=== PATIENT | male | born 1950 | race Caucasian/White ===

== ENCOUNTER 2019-07-23 12:54 | Emergency (ER) | payer MEDICARE, SELFPAY ==
[2019-07-23 13:04] VITALS: BP 109/85; PULSE 80; RESP 16; TEMP 36.3; O2SAT 99
--- NOTE | 2019-07-23 13:12 | ED.UPPEXIN ---
HPI - Extremity Injury (Upper) General Chief Complaint: Upper Respiratory Infection Stated Complaint: Sore throat Time Seen by Provider: 07/23/19 13:13 Source: patient Mode of arrival: ambulatory History of Present Illness HPI narrative: patient presents with sore throat no cough no shortness of breath no ear pain no drooling and no problems swallowing. Related Data Home Medications Medication Instructions Recorded Confirmed amlodipine 10 mg PO DAILY 07/23/19 07/23/19 aspirin 81 mg PO DAILY 07/23/19 07/23/19 atorvastatin 20 mg PO DAILY 07/23/19 07/23/19 finasteride 5 mg PO DAILY 07/23/19 07/23/19 metoprolol tartrate 25 mg PO DAILY 07/23/19 07/23/19 nitroglycerin 0.4 mg SUBLINGUAL Q5M PRN 07/23/19 07/23/19 omeprazole 20 mg PO DAILY 07/23/19 07/23/19 Allergies Allergy/AdvReac Type Severity Reaction Status Date / Time ampicillin Allergy Unknown Unknown Unverified 07/23/19 13:16 Penicillins Allergy Unknown Verified 07/23/19 13:16 Review of Systems Review of Systems: Narrative: CONSTITUTIONAL: Denies fever, chills, or sweats. EYES: Denies visual changes, redness, or discharge. ENT: Denies rhinorrhea, congestion, or otalgia. Reports sore throat CARDIOVASCULAR: Denies chest pain, palpitations, or edema. RESPIRATORY: Denies cough or dyspnea. GASTROINTESTINAL: Denies abdominal pain, nausea, vomiting, or diarrhea. GENITOURINARY: Denies dysuria or hematuria. SKIN: Denies rash or itching. MUSCULOSKELETAL: Denies back pain, joint pain, or myalgia. NEUROLOGIC: Denies headache, numbness, or weakness. PSYCHIATRIC: Denies anxiety or depression. PMFSH Comments At time of signature, agree with nursing past medical, surgical, social and family history. There is no relevant family history pertinent to the presenting complaint Exam Narrative: Exam Narrative: GENERAL: Well-appearing, well-nourished, and in no acute distress. HEAD: Normocephalic, atraumatic. EYES: PERRLA and EOMI. ENT: Nares clear, no rhinorrhea or epistaxis. Mucous membranes moist. moderate pharyngeal erythema with exudate. mild poat nasal draiange NECK: Supple. CHEST: Clear to auscultation. No respiratory distress. HEART: Regular rate and rhythm. No murmur heard. Normal peripheral pulses. ABDOMEN: Soft, nontender, nondistended, normal active bowel sounds. EXTREMITIES: Normal range of motion. No edema. SKIN: Warm, dry, no rash. NEURO: No focal deficits. Alert and oriented x3. Kite Coma Scale Eye Opening: Spontaneous 4 Rudi Coma Scale Motor: Obeys Commands 6 Rudi Coma Scale Verbal: Oriented 5 Kite Coma Scale Total 15 Course Vital Signs Vital signs: Vital Signs Temperature 36.3 C L 07/23/19 13:04 Pulse Rate 80 07/23/19 13:04 Respiratory Rate 16 07/23/19 13:04 Blood Pressure 109/85 07/23/19 13:04 Pulse Oximetry 99 07/23/19 13:04 Temperature 36.3 C L 07/23/19 13:04 Pulse Rate 80 07/23/19 13:04 Respiratory Rate 16 07/23/19 13:04 Blood Pressure 109/85 07/23/19 13:04 Pulse Oximetry 99 07/23/19 13:04 MDM - Extremity Injury (Upper) Differential Diagnosis Differential diagnosis: Likely other (Upper respiratory infection, pharyngitis, strep pharyngitis) Lab Data Labs: Strep Screen Presumptive Negative *(Reference Range: Negative)* Critical Care Time Critical Care Time Critical Care Time: No Discharge Plan Discharge Clinical Impression: Exudative tonsillitis, Viral infection Upper respiratory infection Qualifiers: URI type: unspecified viral URI Qualified Code(s): J06.9 - Acute upper respiratory infection, unspecified Pharyngitis Qualifiers: Pharyngitis/tonsillitis etiology: other specified organisms Qualified Code(s): J02.8 - Acute pharyngitis due to other specified organisms Patient Disposition: Home, Self-Care Condition: Stable Instructions: Antibiotic Form Additional Instructions: Increase fluids especially juices and water [id number] cough an
== END 2019-07-23 13:30 | disposition home or self-care (01) ==
PROVIDERS: Emergency Provider Nurse Practitioner Family
DX: J02.8 Acute pharyngitis due to other specified organisms (principal); B34.9 Viral infection, unspecified; J06.9 Acute upper respiratory infection, unspecified; E78.00 Pure hypercholesterolemia, unspecified; I10 Essential (primary) hypertension
CPT/HCPCS: 87081; 87880; 99213; G0463

== ENCOUNTER 2020-01-04 10:12 | Emergency (ER) | payer MEDICARE, SELFPAY ==
[2020-01-04 10:17] VITALS: BP 146/80; PULSE 68; RESP 16; TEMP 36.2; O2SAT 100
--- NOTE | 2020-01-04 10:19 | ED.SKABFB ---
HPI - Skin/Abscess/Foreign Bdy General Chief complaint: Skin/Abscess/Foreign Body Stated complaint: rash on arms Time Seen by Provider: 01/04/20 10:19 Source: patient and RN notes reviewed History of Present Illness HPI narrative: Patient is a 69-year-old male who presents the urgent care with complaints of poison radha on bilateral lower arms. Patient states he contacted himself with it on Sunday and has been using calamine. Patient denies any other use of [id number] medication such as Benadryl. Patient states that he gets poison radha very regularly. No other complications or no other areas of spreading. No acute distress noted. Patient read the plan of care. Related Data Home Medications Medication Instructions Recorded Confirmed aspirin 81 mg PO DAILY 07/23/19 01/04/20 atorvastatin 20 mg PO DAILY 07/23/19 01/04/20 finasteride 5 mg PO DAILY 07/23/19 01/04/20 nitroglycerin 0.4 mg SUBLINGUAL Q5M PRN 07/23/19 01/04/20 omeprazole 20 mg PO DAILY 07/23/19 01/04/20 losartan 25 mg PO DAILY 01/04/20 01/04/20 metoprolol succinate 25 mg PO DAILY 01/04/20 01/04/20 Allergies Allergy/AdvReac Type Severity Reaction Status Date / Time ampicillin Allergy Unknown Unknown Unverified 01/04/20 10:16 Penicillins Allergy Unknown Verified 01/04/20 10:16 Review of Systems Review of Systems: Narrative: CONSTITUTIONAL: Denies fever, chills, or sweats. EYES: Denies visual changes, redness, or discharge. ENT: Denies rhinorrhea, congestion, sore throat, or otalgia. CARDIOVASCULAR: Denies chest pain, palpitations, or edema. RESPIRATORY: Denies cough or dyspnea. GASTROINTESTINAL: Denies abdominal pain, nausea, vomiting, or diarrhea. GENITOURINARY: Denies dysuria or hematuria. SKIN: Reports of itchy poison radha to bilateral lower arms MUSCULOSKELETAL: Denies back pain, joint pain, or myalgia. NEUROLOGIC: Denies headache, numbness, or weakness. All other systems reviewed are negative, except as documented in HPI. PMFSH Comments At the time of my signature, I reviewed and agree with the nursing past medical, surgical, social, and family history. There is no relevant family history pertinent to the patient complaint. Exam Narrative: Exam Narrative: GENERAL: This is a well-nourished, well-developed patient, in no apparent distress. HEAD: normocephalic, atraumatic. EYES: PERRL. Sclera clear/white. Vision is grossly intact. EARS: External ears normal NOSE: External nose normal with no obvious nasal discharge, nares without redness, no rhinorrhea. THROAT: Mucous membranes moist NECK: Neck supple SKIN: Notable dried ruse dermatitis noted bilateral lower arms NEURO: awake, alert, and oriented to person, place and time. There were no obvious focal neurologic abnormalities. EXTREMITIES: No clubbing, cyanosis, or edema. Course Vital Signs Vital signs: Vital Signs Temperature 97.1 F L 01/04/20 10:17 Pulse Rate 68 01/04/20 10:17 Respiratory Rate 16 01/04/20 10:17 Blood Pressure 146/80 H 01/04/20 10:17 Pulse Oximetry 100 01/04/20 10:17 Temperature 97.1 F L 01/04/20 10:17 Pulse Rate 68 01/04/20 10:17 Respiratory Rate 16 01/04/20 10:17 Blood Pressure 146/80 H 01/04/20 10:17 Pulse Oximetry 100 01/04/20 10:17 Reviewed?patient is informed that they may have pre-hypertension or hypertension based on a blood pressure reading in the department. I recommend the patient call the primary care provider listed on their discharge instructions or a physician of their choice this week to arrange follow-up for further evaluation of possible pre-hypertension or hypertension. MDM - Skin/Abscess/Foreign Bdy MDM Narrative Medical decision making narrative: Advised the patient to use Benadryl as needed as well as prescription cream to affected areas. Avoid the use of prescription cream to the groin, underarms and face. Use TecNu scrub [id number] daily while showering. If you develop any increase in the spread of the rash to areas suc
== END 2020-01-04 10:39 | disposition home or self-care (01) ==
PROVIDERS: Emergency Provider Nurse Practitioner Family; PCP Internal Medicine Infectious Disease
DX: L23.7 Allergic contact dermatitis due to plants, except food (principal); E78.00 Pure hypercholesterolemia, unspecified; I10 Essential (primary) hypertension; Z95.5 Presence of coronary angioplasty implant and graft
CPT/HCPCS: 99213; G0463